=== PATIENT | female | born 1995 | race Caucasian/White ===

== ENCOUNTER 2021-09-28 09:56 | Emergency (ER) | payer OTHER, BC | END 2021-09-28 12:20 | disposition home or self-care (01) | LOC: ERS 09:56 | DX: S93.401A Sprain of unspecified ligament of right ankle, initial encounter (principal); S90.121A Contusion of right lesser toe(s) without damage to nail, initial encounter; W01.0XXA Fall on same level from slipping, tripping and stumbling without subsequent striking against object, initial encounter ==